=== PATIENT | male | born 1995 | race Hispanic/Latino ===

== ENCOUNTER → 2019-05-09 | Outpatient (CLI) | payer MEDICARE | END | disposition home or self-care (01) | LOC: RAH 08:04 | PROVIDERS: ATTEND Family Medicine | DX: R11.2 Nausea with vomiting, unspecified (principal) | CPT/HCPCS: 76700 ==

== ENCOUNTER → 2021-10-13 | Outpatient (CLI) | payer OTHER, MEDICARE | END | disposition home or self-care (01) | LOC: RAH 13:22 | PROVIDERS: ATTEND Family Medicine | DX: Q87.40 Marfan syndrome, unspecified (principal) | CPT/HCPCS: 93306 ==